=== PATIENT | male | born 1945 | race Asian ===

== ENCOUNTER 2017-09-30 10:47 | Emergency (ER) | payer OTHER, MEDICAID ==
--- NOTE | 2017-09-30 10:51 | EDPHY ---
H & P Stated Complaint: Hip Pain Time Seen by Provider: 09/30/17 10:50 HPI/ROS: Chief Complaint: Left hip pain HPI: 72-year-old male presenting with 2 weeks of worsening left hip pain. Patient states hurts when he walks. He has been applying topical pain medicines in [place] herbs without any significant relief. He has a history of sciatic back pain and had an injection many years ago but has not been currently getting any other treatments. No numbness or weakness. He is able to ambulate with some discomfort. No back pain. No urinary urgency or frequency. No recent falls or other injuries. Patient speaks Cantonese. Translation was a sheath via a translation services. ROS: 10 point Review of Systems is negative except as noted in the HPI. PMH: Back pain Social History: Positive smoking, occasional alcohol, no recreational drug use Family History: non-contributory Physical Exam: Gen: Awake, Alert, No Distress HEENT: Nose: no rhinorrhea Eyes: PERRLA, EOMI Mouth: Moist mucosa Neck: Supple, no JVD Chest: nontender, lungs clear to auscultation Heart: S1, S2 normal, no murmur Abd: Soft, non-tender, no guarding Back: no CVA tenderness, no midline tenderness Ext: no edema, non-tender, left hip nontender, full range of motion without pain a knee is nontender, full range of motion without pain, ankles nontender full range without pain. Sensations intact in all dermatomes. Capillary refills less than 2 sec. 2+ dorsalis pedis pulses Skin: no rash Neuro: CN II-XII intact, Sensation grossly intact, Strength 5/5 in bilateral upper and lower extremities Constitutional: Initial Vital Signs Temperature (C) 36.5 C 09/30/17 10:59 Heart Rate 74 09/30/17 10:59 Respiratory Rate 16 09/30/17 10:59 Blood Pressure 105/50 L 09/30/17 10:59 O2 Sat (%) 93 09/30/17 10:59 O2 Delivery Mode Room Air Allergies/Adverse Reactions: Penicillins Allergy (Verified 09/30/17 11:12) Other-Enter Comments Home Medications: Medication Instructions Recorded Hydrocodone/Acetaminophen 1 - 2 each PO Q4-6PRN PRN #10 09/30/17 [Hydrocodon-Acetaminophen 5-325] tablet Medical Decision Making - Diagnostics Imaging Results: Imaging Impressions Hip X-Ray 09/30/17 11:17 Impression: 1. Subtle possible lucency associated with the superior left SI joint, however, there is bowel gas in this area that can mimic area of lucency. If symptoms persist, consider additional imaging with CT of the pelvis without contrast to evaluate for possible erosive lesion versus MRI for further characterization. No additional abnormality identified. Findings discussed with Fidel De Oliveira MD at 12:31 hour, 09/30/2017. Pelvis CT 09/30/17 12:35 Impression: 1. Relative lucency seen on x-ray imaging left superior SI joint appears to represent combination of bony contour of the superior SI joint as well as overlying bowel gas on x-ray imaging. No erosion is seen on CT imaging. 2. Marked degenerative disk disease at L5-S1 with hypertrophic marginal osteophytes more prominent posterior central to left paracentral as detailed above. Findings discussed with Fidel De Oliveira MD at 13:16 hour, 09/30/2017. ED Course/Re-evaluation: X-ray shows possible erosive lesion at the left SI joint per Radiology. Will obtain CT scan to further evaluate further. CT scan results noted. Patient presenting with left hip pain. He has no back pain. He is completely neurologically intact. Symptoms likely consistent with sciatic back pain. No neurologic red flags for infection or acute cord impingement. Plan will be to refer to primary care for follow-up. Will send with a short course [place] for pain relief. - Data Points Medications Given: Discontinued Medications Ibuprofen (Motrin) 400 mg PO EDNOW ONE Stop: 09/30/17 12:08 Last Admin: 09/30/17 12:12 Dose: 400 mg Departure - Departure Disposition: Home, Routine, Self-Care Clinical Impression: Sciatica Condition: Good Instructions: Sciatica (ED) Additional Instructions: May take ibuprofen, 600 mg 3 times a day. Do not do this longer in 3-4 days. You also take [place] as needed for breakthrough pain. Follow up with primary care physician in 3-4 days for further evaluation. Prescriptions: Hydrocodone/Acetaminophen [Hydrocodon-Acetaminophen 5-325] 1 - 2 each PO Q4- 6PRN PRN #10 tablet PRN Reason: Pain, Severe
[2017-09-30] MEDS ORDERED: IBUPROFEN 200 MG TAB PO ONE (12:07)
[2017-09-30 14:22] VITALS: BP 110/59
== END 2017-09-30 14:20 | disposition home or self-care (01) ==
LOC: CED 10:47
DX: M54.32 Sciatica, left side (principal); F17.200 Nicotine dependence, unspecified, uncomplicated
CPT/HCPCS: 72192-PO; 73502-PO

== ENCOUNTER 2017-10-04 09:34 | Emergency (ER) | payer OTHER, MEDICAID ==
[2017-10-04] MEDS ORDERED: ACETAMINOPHEN 500 MG TAB PO ONE (10:22)
[2017-10-04] MEDS ORDERED: IBUPROFEN 600 MG TAB PO ONE (10:22)
--- NOTE | 2017-10-04 10:28 | EDPHY ---
H & P Time Seen by Provider: 10/04/17 09:52 HPI/ROS: This patient presented 4 days ago here with left hip pain, diagnosed with sciatica. His workup included a hip x-ray which was normal exception of the potential lucency at the left SI joint. A CT pelvis was performed that revealed this to be a radiographic artifact of the plain x-ray with no significant abnormalities other than extensive degenerative changes at L5-S1. He was discharged on hydrocodone/Tylenol 10 tabs which she took and did not appreciate significant improvement. He return for a recheck due to ongoing pain that he states this severe in makes it difficult to walk. He has been taking a Pashto herbal medicine and tablet form and also applying a salve without improvement. Patient speaks Cantonese only and history is provided via the video translation service. He denies any intercurrent injury. ROS: Constitutional: No fevers Neuro: He reports some tingling left leg but no focal weakness. No cholo numbness. No bowel or bladder incontinence. Musculoskeletal: No complaints other than back GI: No abdominal pain : No testicular pain. No dysuria. No hematuria. Integumentary: No rash 7 point ROS is otherwise negative. Past Medical/Surgical History: Sciatica diagnosis urine 09/30/2017 Smoking Status: Current every day smoker Physical Exam: Physical Exam Vital signs are normal. General: No acute distress Eyes: Pupils equal and react to light. Extraocular motions are intact. Lungs: Clear to auscultation bilaterally. No respiratory distress. Cardiac: Regular rate and rhythm with no murmur gallop rub. He maintains 2+ symmetric popliteal pulses bilaterally in lower extremities. Abdomen: Soft, nontender : No testicular tenderness Back: No significant midline tenderness. Patient has tenderness in the left sciatic notch. Straight leg raise is negative bilaterally. Skin: No rash or pallor. Neuro: Alert and oriented with no sensorimotor deficits in the affected extremity. He maintains normal light touch sensation bilateral lower extremities, 5/5 strength in great toe dorsiflexion and plantar flexion bilaterally and 2+ symmetric patellar and Achilles DTRs bilaterally. Initial differential diagnosis: Low back strain, sciatica, hip strain Constitutional: Initial Vital Signs Temperature (C) 36.8 C 10/04/17 10:23 Heart Rate 67 10/04/17 10:23 Respiratory Rate 16 10/04/17 10:23 Blood Pressure 111/62 10/04/17 10:23 O2 Sat (%) 95 10/04/17 10:23 O2 Delivery Mode Room Air Allergies/Adverse Reactions: Penicillins Allergy (Verified 10/04/17 10:21) Other-Enter Comments Home Medications: Medication Instructions Recorded Ibuprofen [Motrin (*)] 600 mg PO Q6 PRN #30 tab 10/04/17 Methocarbamol [Robaxin 750 mg (*)] 750 - 1,500 mg PO QID PRN #30 tab 10/04/17 NK [No Known Home Meds] 10/04/17 traMADol [Ultram 50 mg (*)] 50 - 100 mg PO Q4 PRN #20 tab 10/04/17 MDM/Departure - MDM Medications Given: Discontinued Medications Acetaminophen (Tylenol) 1,000 mg PO EDNOW ONE Stop: 10/04/17 10:23 Last Admin: 10/04/17 10:41 Dose: 1,000 mg Ibuprofen (Motrin) 600 mg PO EDNOW ONE Stop: 10/04/17 10:23 Last Admin: 10/04/17 10:42 Dose: 600 mg ED Course/Re-evaluation: Patient is treated with ibuprofen Tylenol p. O. Via the director safety council a described stretches that may be helpful for sciatica and described treatment plan consisting of ibuprofen, Tylenol, methocarbamol and tramadol for pain control if needed with plan to follow up with the outpatient physician on-call Dr. Gallardo in 3-5 days for recheck. Patient understands the need to bring a director safety council to that follow-up appointment. Discussion: Patient with classic findings for sciatica without evidence of cauda equina or other red flag findings at this time. He understands the need to return emergency department should develop significant worsening of symptoms despite the treatment plan outlined above. - Depart Disposition: Home, Routine, Self-Care Clinical Impression: Sciatica Qualifiers: Laterality: left Qualified Code(s): M54.32 - Sciatica, left side Condition: Good Instructions: Sciatica (ED) Additional Instructions: DX: Sciatica Plan: Ibuprofen 400-600 mg per 6 hours regularly for the next week then as needed. Methocarbamol muscle relaxants as needed. Tylenol as needed for pain, 650 mg 2000 mg per 4 hr but do not exceed 3000 mg in 24 hr. Tramadol in addition if needed for pain that prevents sleep despite other medications. No driving alcohol or work on tramadol as this medication will make you slightly sedated. Starts daily stretches prior to taking muscle relaxants and Vicodin in the morning. 3-5 minutes each of: "Butterfly stretch," "Sphinx stretch", "pigeon stretch", and hamstring stretch. Avoid lifting more than 5-10 pounds until symptoms improve. Call your primary care physician- Dr. Monahan for a followup appointment in 3- 7 days. Go to the emergency department for worsening of your symptoms despite the treatment plan. Prescriptions: Ibuprofen [Motrin (*)] 600 mg PO Q6 PRN #30 tab PRN Reason: Pain Methocarbamol [Robaxin 750 mg (*)] 750 - 1,500 mg PO QID PRN #30 tab PRN Reason: Muscle Spasms traMADol [Ultram 50 mg (*)] 50 - 100 mg PO Q4 PRN #20 tab PRN Reason: breakthrough pain Referrals: Maximiliano Gallardo MD [Medical Doctor] - As per Instructions
[2017-10-04 10:49] VITALS: BP 116/70
== END 2017-10-04 10:40 | disposition home or self-care (01) ==
LOC: CED 09:34
DX: M54.32 Sciatica, left side (principal); F17.200 Nicotine dependence, unspecified, uncomplicated